=== PATIENT | female | born 1985 | race Hispanic/Latino ===

== ENCOUNTER 2017-03-31 22:19 | Observation (INO) | payer MEDICAID ==
[2017-03-31 23:17] VITALS: BMI 31.8
--- NOTE | 2017-03-31 23:44 | OBHP ---
Datetime: 03/31/2017 23:38 Admit Comment, IP Provider: @ 32.3 weeks presents to the [facility] after being transfered from the [facility] - She complains of vague lower abdominal the patient was seen with the resident I agree with the note.Patient to ER for clearance
[2017-04-01 00:57] VITALS: O2SAT 99
--- NOTE | 2017-04-01 01:54 | ED PDOC ---
HPI: General Adult Time Seen by Provider: 04/01/17 00:46 Chief Complaint (Nursing): Anxiety Chief Complaint (Provider): anxiety and abd pain History Per: Patient History/Exam Limitations: no limitations Onset/Duration Of Symptoms: Days Have you had recent travel within the past 21 days to any of the following countries: [place], [place], [place] or [place]?: No Current Symptoms Are (Timing): Still Present Additional Complaint(s): 31yo female who is 32 weeks EGA presents to the ED with c/o anxiety and abdominal pain. Patient reports living in a jeep for the past week and went to [facility] yesterday seeking detox and long term. Patient was referred to long term program and states she was turned away because she is . Patient subsequently contacted another homeless long term and was told she would have a bed at 0800 this morning so patient came to ED for eval. Cleared by SAFETY DIRECTOR and states she currently has lower back pain. Past Medical History Reviewed: Historical Data, Nursing Documentation, Vital Signs Vital Signs: Last Vital Signs Temp 97.8 F 04/01/17 00:51 Pulse 86 04/01/17 00:51 Resp 16 04/01/17 00:51 BP 104/50 L 04/01/17 00:51 Pulse Ox 99 04/01/17 01:58 - Medical History PMH: No Chronic Diseases - Surgical History Surgical History: - Family History Family History: States: Unknown Family Hx - Immunization History Hx Tetanus Toxoid Vaccination: No Hx Influenza Vaccination: No Hx Pneumococcal Vaccination: No - Home Medications Home Medications: Ambulatory Orders Medication Instructions Recorded Buprenorphine Hydrochloride 8 mg SL DAILY 03/30/17 [Subutex] Escitalopram [Lexapro] 20 mg PO DAILY 03/30/17 Vit Calc,Iron,Folic 1 tab PO DAILY 03/31/17 [ Vitamins] - Allergies Allergies/Adverse Reactions: Allergies Allergy/AdvReac Type Severity Reaction Status Date / Time Penicillins Allergy Mild RASH Verified 03/31/17 23:18 Review of Systems ROS Statement: Except As Marked, All Systems Reviewed And Found Negative Gastrointestinal: Positive for: Abdominal Pain Musculoskeletal: Positive for: Back Pain (lower ) Psych: Positive for: Anxiety Physical Exam - Reviewed Nursing Documentation Reviewed: Yes Vital Signs Reviewed: Yes - Physical Exam Appears: Positive for: Well, No Acute Distress Head Exam: Positive for: ATRAUMATIC, NORMAL INSPECTION, NORMOCEPHALIC Skin: Positive for: Normal Color, Warm, Dry Eye Exam: Positive for: Normal appearance, EOMI, PERRL ENT: Positive for: Normal ENT Inspection Neck: Positive for: Normal, Painless ROM, Supple Cardiovascular/Chest: Positive for: Regular Rate, Rhythm. Negative for: Murmur , Tachycardia Respiratory: Positive for: Normal Breath Sounds. Negative for: Wheezing, Respiratory Distress Gastrointestinal/Abdominal: Positive for: Other (gravid uterus ). Negative for : Tenderness Back: Positive for: Normal Inspection. Negative for: L CVA Tenderness, R CVA Tenderness Extremity: Positive for: Normal ROM. Negative for: Deformity, Swelling Neurologic/Psych: Positive for: Alert, Oriented - ECG O2 Sat by Pulse Oximetry: 99 Pulse Ox Interpretation: Normal (RA) Medical Decision Making Medical Decision Makin: Impression: homelessness Plan: Tylenol 650mg PO ED obs Patient requesting to remain in ED until morning when she can go to homeless long term. Scribe Attestation: Documented by Pantera Arevalo acting as a scribe for Sanford Marie MD. Provider Scribe Attestation: All medical record entries made by the Scribe were at my direction and personally dictated by me. I have reviewed the chart and agree that the record accurately reflects my personal performance of the history, physical exam, medical decision making, and the department course for this patient. I have also personally directed, reviewed, and agree with the discharge instructions and disposition. ED OBSERVATION Date of observation admission: 04/01/17 Time of observation admission: 00:54 - Observation admission statement Patient is being placed in observation because:: homelessness - Progress Note Progress Note: 04/01/17 05:48 PT. stable for discharge. Disposition - Clinical Impression Clinical Impression: Third trimester , Opioid abuse - Disposition Disposition: Routine/Home Disposition Time: 05:49 Condition: STABLE
[2017-04-01 07:11] VITALS: BP 128/76; PULSE 81; RESP 17; TEMP 98.1
== END 2017-04-01 05:47 | disposition home or self-care (01) ==
LOC: H.EROB2 22:19 → H.EROBSV 04-01 00:54
PROVIDERS: ADMIT Emergency Medicine; ATTEND Emergency Medicine
DX: O99.323 Drug use complicating pregnancy, third trimester (principal); F11.10 Opioid abuse, uncomplicated; Z3A.32 32 weeks gestation of pregnancy; Z59.0 Homelessness; O99.343 Other mental disorders complicating pregnancy, third trimester; F41.9 Anxiety disorder, unspecified; M54.5 Low back pain; Z88.0 Allergy status to penicillin; R10.30 Lower abdominal pain, unspecified